=== PATIENT | female | born 1960 | race Caucasian/White ===

== ENCOUNTER 2017-04-26 06:53 | Day surgery (SDC) | payer OTHER ==
[~2017-04-26] VITALS: Ht 167.6 cm; Wt 86.2 kg
[~2017-04-26 06:53] MED LIST: ADVAIR HFA 230-12 GM; ALBUTEROL1.25 MG/3 INH; ALEVE PM CAPLE1 EACH PO; CENTRUM COMPLE1 EACH PO; CLARITIN10 MG PO; COCONUT OIL1000 MG PO; CRANBERRY CONC1 EAC1 PO; FLUTICASONE PRO16 GM NAS; GARLIC1000 MG PO; LEVAQUIN500 MG; LEVAQUIN500 MG PO; LEVOTHYROXINE50 MCG PO; MONTELUKAST SOD10 MG PO; PROAIR RESPICL90 MCG IH; PROBIOTIC1 EAC1 PO; SEREVENT DISKU1 PUFF INH; ZITHROMAX250 MG
[2017-04-26] MEDS ORDERED: CLARITIN10 M2 PO (07:14)
--- NOTE | 2017-04-26 09:00 | NUR ---
04/26/17 0900 Joceline Cabral REPORT FROM YARN BLEACHING MACHINE OPERATOR.
--- NOTE | 2017-04-26 09:51 | NUR ---
LE 0963 PT RETURNED FROM PACU WIDE AWAKE WITH NO C/O'S. CALL LITE IN PLACE. WATER GIVEN.
--- NOTE | 2017-04-26 10:20 | NUR ---
1015 amb to br voids qs. wants to go home instructed she has to wait 15 min more.
--- NOTE | 2017-04-26 10:27 | NUR ---
PT RESTING COMFORTABLY. PT IS MILDLY FRUSTRATED THAT SHE NEEDS TO HAVE TUBES REPLACED AGAIN. VERY COMFORTABLE WITH DR AND STAFF. PT REQUESTED PRAYER. WILL FOLLOW NEEDED
--- NOTE | 2017-06-14 09:33 | OR ---
[facility] [address] [place], [place] [address] Signed DATE OF PROCEDURE: 04/26/17 PREOPERATIVE DIAGNOSIS: Chronic ear infections. POSTOPERATIVE DIAGNOSIS: Chronic ear infections. PROCEDURE Left myringotomy and ventilation tube insertion, exam of the right ear under anesthesia. SURGEON: Gera Mckeon MD. ANESTHESIA: General mask. POWER HAIR CLIPPER: Constance Wiley. PREOPERATIVE HISTORY Fox is a 56-year-old lady with a long history of ear infections. She has had multiple ventilation tubes inserted. Right tube is still functional. Left tube has extruded. She has recurrent effusion. She is taken to the operating for the above-mentioned procedures. OPERATIVE PROCEDURE AND FINDINGS After informed consent, the patient was taken to the operating room, placed in supine position where general mask anesthesia was induced. The patient and procedure were verified. Left ear was examined with the operating microscope. The eardrum was retracted. Anterior-inferior radial myringotomy was made. No middle ear effusion. T-Tube was taken from the package, untrimmed, placed in the myringotomy site. Cipro drops applied to the ear canal. Cotton ball at meatus. The right ear was inspected. Some dried crusted material was removed. The T-tube was in the ear drum functional. Drops were applied. Cotton ball at meatus. The patient was then awakened, transported to the recovery room in good condition. No complications. BLOOD LOSS: Minimal. SPECIMEN: No specimen. DRAINS: No drains. Electronically Signed By: GERA MCKEON MD 06/14/17 0933 PATIENT NAME: FOX CHASE OPERATIVE REPORT DATE OF : 58 PHYSICIAN: GERA MCKEON MD REPORT #: [id number] REPORT IS CONFIDENTIAL AND NOT TO BE RELEASED WITHOUT AUTHORIZATION [address] [address] Signed Gera Mckeon MD GC/Modl /[id number] cc: Khai Ochoa MD Electronically Signed By: GERA MCKEON MD 06/14/17 0933 PATIENT NAME: FOX CHASE OPERATIVE REPORT DATE OF : 58 PHYSICIAN: GERA MCKEON MD REPORT #: [id number] REPORT IS CONFIDENTIAL AND NOT TO BE RELEASED WITHOUT AUTHORIZATION
== END 2017-04-26 10:35 | disposition home or self-care (01) ==
LOC: DS 06:53
PROVIDERS: Otolaryngology
PROC: 099500Z Drainage of Right Middle Ear with Drainage Device, Open Approach (ICD-10-PCS; principal; 2017-04-26 08:15)
DX: H65.21 Chronic serous otitis media, right ear (principal); I10 Essential (primary) hypertension; E03.9 Hypothyroidism, unspecified; J45.909 Unspecified asthma, uncomplicated; Z88.0 Allergy status to penicillin; Z88.2 Allergy status to sulfonamides; Z88.5 Allergy status to narcotic agent; Z79.899 Other long term (current) drug therapy
CPT/HCPCS: 00126; J1100; J2250; J2405; J3010; J7120

== ENCOUNTER 2017-06-03 07:48 | Emergency (ER) | payer OTHER ==
[~2017-06-03] VITALS: Ht 167.6 cm; Wt 81.7 kg
[~2017-06-03 07:48] MED LIST changes: +CLARITIN10 M2 PO
== END 2017-06-03 14:01 | disposition home or self-care (01) ==
LOC: ED 07:48
PROC: 4A0D7LZ Measurement of Urinary Volume, Via Natural or Artificial Opening (ICD-10-PCS; principal; 2017-06-03)
DX: R31.9 Hematuria, unspecified (principal); J45.909 Unspecified asthma, uncomplicated; E03.9 Hypothyroidism, unspecified; Z88.0 Allergy status to penicillin; Z88.2 Allergy status to sulfonamides; Z88.5 Allergy status to narcotic agent; Z88.1 Allergy status to other antibiotic agents; Z79.899 Other long term (current) drug therapy
CPT/HCPCS: 51798; 74178; 80053; 81001; 85025; 85610; 85730; 87077; 87088; 87186; 99284; J7030; Q9967

== ENCOUNTER 2020-03-10 19:16 | Emergency (ER) | payer OTHER ==
[~2020-03-10] VITALS: Ht 167.6 cm; Wt 77.1 kg
--- NOTE | 2020-03-11 07:15 | EKG ---
[facility] [address] [facility] [place], [place] [address] Signed Normal sinus rhythm Nonspecific ST abnormality Abnormal ECG When compared with ECG of 14-DEC-2016 08:08, Questionable change in QRS axis Confirmed by JASSON YA MD ([id number]) on 03/11/2020 7:15:24 AM Electronically Signed By: JASSON YA MD 03/11/20 0715 PATIENT NAME: FOX CHASE VERONICA Electrocardiogram DATE OF : 58 PHYSICIAN: JASSON YA MD REPORT #: [id number] REPORT IS CONFIDENTIAL AND NOT TO BE RELEASED WITHOUT AUTHORIZATION
== END 2020-03-10 21:50 | disposition home or self-care (01) ==
LOC: ED 19:16
DX: R00.2 Palpitations (principal); J45.909 Unspecified asthma, uncomplicated; E03.9 Hypothyroidism, unspecified; Z88.0 Allergy status to penicillin; Z88.2 Allergy status to sulfonamides; Z88.1 Allergy status to other antibiotic agents; Z88.5 Allergy status to narcotic agent; Z91.09 Other allergy status, other than to drugs and biological substances; Z79.899 Other long term (current) drug therapy
CPT/HCPCS: 71045; 80053; 83735; 84484; 85025; 93005; 93010; 99285-25; J7030